=== PATIENT | male | born 2005 | race Caucasian/White ===

== ENCOUNTER 2024-05-24 11:22 | Outpatient (CLI) | payer MEDICAID, SELFPAY ==
--- NOTE | 2024-05-24 11:32 | XR_ITS ---
WS: [id number] Exam: XR thoracolumbar junct [id number] Date/Time of Exam: 05/24/2024 11:56 AM Reason For Exam: SCOLLOSIS No fracture or malalignment noted. Disc spaces are preserved. There is very slight levoscoliosis at t he thoracolumbar junction. Normal paraspinal soft tissues. XR/XR thoracolumbar junct [id number] IMPRESSION: 1. Very slight levoscoliosis at the thoracolumbar junction otherwise negative e xam.
--- NOTE | 2024-05-24 11:32 | XR_ITS ---
WS: [id number] Exam: XR cervical spine 3V* [id number] Date/Time of Exam: 05/24/2024 11:56 AM Reason For Exam: SCOLIOSIS No fracture or malalignment. Disc spaces are preserved. Posterior elements are intact. Normal paraspi nal soft tissues. The odontoid is intact. Mild sidebending of the upper C-spine with RIGHT convexity. This may be positional. XR/XR cervical spine 3V* [id number] IMPRESSION: 1. No fracture or malalignment. Mild sidebending of the C-spine that may be pos itional.
== END 2024-05-24 11:23 | disposition home or self-care (01) ==
PROVIDERS: PCP Nurse Practitioner Family; Visit Provider Nurse Practitioner Family
DX: M41.9 Scoliosis, unspecified (principal)
CPT/HCPCS: 72040; 72080

== ENCOUNTER → 2024-06-20 15:32 | Outpatient (BNVA) | payer MEDICAID, SELFPAY | PROVIDERS: PCP Nurse Practitioner Family; Visit Provider Orthopaedic Surgery | DX: M54.9 Dorsalgia, unspecified (principal) | CPT/HCPCS: 72110 ==

== ENCOUNTER → 2025-03-20 10:54 | Outpatient (BNVA) | payer MEDICAID, SELFPAY | PROVIDERS: PCP Nurse Practitioner Family; Visit Provider Nurse Practitioner Family | DX: N43.3 Hydrocele, unspecified (principal); Z13.6 Encounter for screening for cardiovascular disorders | CPT/HCPCS: 80053; 80061; 81000; 84443; 85025; 86592; 87491; 87591; 87661 ==

== ENCOUNTER 2025-04-02 13:35 | Outpatient (CLI) | payer BC, SELFPAY ==
--- NOTE | 2025-04-02 13:45 | USR_ITS ---
PROCEDURE INFORMATION: Exam: US Pelvis Limited, Transabdominal, Soft tissue Exam date and time: 04/02/2025 1:54 PM Age: 19 years old Clinical indication: Other: Generalized enlarged lymph nodes; Additional info: R59.1 - generalized enlarged lymph nodes TECHNIQUE: Imaging protocol: Real-time transabdominal pelvic ultrasound with image documentation. Limited exam. Exam focused on the soft tissue. COMPARISON: No relevant prior studies available. FINDINGS: Soft tissues: Unremarkable. No masses or collections in visualized area. Vasculature: Visualized vascular structures unremarkable . Lymph nodes: There are 4 lymph nodes in the right inguinal region with fatty nick with the largest measuring up to 8 mm in its short axis and 12 mm in its long axis. Lymph node in the left inguinal region with fatty hilum measuring 4 mm in the short axis and up to 17 mm in its long axis. Other findings: No suspicious masses. No drainable fluid collections. US/US pelvic limited [id number] IMPRESSION: 1. Four lymph nodes in the right inguinal region with fatty nick with the largest measuring up to 8 mm in its short axis and 12 mm in its long axis. 2. Lymph node in the left inguinal region with fatty hilum measuring 4 mm in the short axis and up to 17 mm in its long axis. 3. No suspicious masses. 4. No drainable fluid collections. 5. Visualized vascular structures unremarkable .
--- NOTE | 2025-04-02 14:30 | US_ITS ---
WS: [id number] TESTICULAR ULTRASOUND HISTORY: N43.3 - Hydrocele, unspecified COMPARISON: None available. TECHNIQUE: Real-time and color Doppler imaging utilized to perform a testicular ultrasound. Right testicle: 4.0 cm x 2.9 cm x 2.9 cm. Normal size and echogenicity. No mass or torsion. Normal color Doppler is present throughout. Systolic and diastolic velocities are both present. The large hydrocele surrounds the testicle. There is a very small spermatocele in the RIGHT epididymal head. Benign calcium in the dependent portion of the hydrocele. Right epididymis: Normal epididymis with no increased vascularity. Left testicle: 4.1 cm x 3.0 cm x 2.8 cm. Normal size and echogenicity. No mass or torsion. Normal color Doppler is present throughout. Systolic and diastolic velocities are both present. Small surrounding hydrocele. Left epididymis: Normal epididymis with no increased vascularity. US/US scrotum [id number] IMPRESSION: 1. Large simple RIGHT hydrocele surrounds the entire testicle. 2. Small LEFT hydrocele. 3. No testicular mass or torsion.
== END 2025-04-02 13:36 | disposition home or self-care (01) ==
LOC: RAD 13:37
PROVIDERS: PCP Nurse Practitioner Family; Visit Provider Nurse Practitioner Family
DX: R59.1 Generalized enlarged lymph nodes (principal); N43.3 Hydrocele, unspecified
CPT/HCPCS: 76857; 76870